=== PATIENT | female | born 1995 | race Caucasian/White ===

== ENCOUNTER → 2017-06-24 | Outpatient (CLI) | payer OTHER ==
[2017-06-26 05:08] LABS: HCV Non Reactive (NR)
== END ==
LOC: LAB EV 17:33
PROVIDERS: General Practice
DX: Z20.9 Contact with and (suspected) exposure to unspecified communicable disease (principal)
CPT/HCPCS: 84460; 86706; 86803; 87340; 87389

== ENCOUNTER → 2017-08-05 | Outpatient (CLI) | payer OTHER | END | disposition home or self-care (01) | LOC: LAB EV 17:25 | DX: Z20.9 Contact with and (suspected) exposure to unspecified communicable disease (principal) | CPT/HCPCS: 86803; 87389 ==

== ENCOUNTER → 2017-10-03 | Outpatient (CLI) | payer OTHER ==
[2017-10-05 04:11] LABS: HBSAG SCREEN Negative (Negative); HEP A AB, IGM Negative (Negative); HEP B CORE AB, IGM Negative (Negative); HEP C VIRUS AB <0.1 (0.0-0.9); HIV SCREEN 4TH GENERATION WRFX Non Reactive (Non Reactive)
[2017-10-05 23:08] LABS: CHLAMYDIA TRACHOMATIS, NAA Negative (Negative); NEISSERIA GONORRHOEAE, NAA Negative (Negative)
== END | disposition home or self-care (01) ==
LOC: LAB SHORT 12:10 → LAB EV 12:10
DX: N90.9 Noninflammatory disorder of vulva and perineum, unspecified (principal)
CPT/HCPCS: 80074; 86592; 86694; 86695; 86696; 87070; 87205; 87252; 87254; 87389; 87491; 87591

== ENCOUNTER → 2017-11-27 | Outpatient (CLI) | payer OTHER, SELFPAY ==
[2017-11-29 09:10] LABS: HIV SCREEN 4TH GENERATION WRFX Non Reactive (Non Reactive)
[2017-11-29 12:07] LABS: HCV ANTIBODY <0.1 (0.0-0.9)
== END | disposition home or self-care (01) ==
LOC: LAB EV 18:52 → LAB SHORT 18:52
PROVIDERS: Family Medicine
DX: Z20.9 Contact with and (suspected) exposure to unspecified communicable disease (principal)
CPT/HCPCS: 84460; 86317; 86803; 87389

== ENCOUNTER → 2018-05-11 | Outpatient (CLI) | payer OTHER, SELFPAY ==
[2018-05-15 02:11] LABS: CHLAMYDIA TRACHOMATIS, NAA Negative (Negative); NEISSERIA GONORRHOEAE, NAA Negative (Negative)
== END | disposition home or self-care (01) ==
LOC: LAB 11:59 → LAB SHORT 11:59
PROVIDERS: Advanced Practice Midwife
DX: Z11.3 Encounter for screening for infections with a predominantly sexual mode of transmission (principal)
CPT/HCPCS: 87491; 87591

== ENCOUNTER → 2019-08-26 | Outpatient (CLI) | payer OTHER | END | disposition home or self-care (01) | LOC: LAB EV 16:05 → LAB SHORT 16:05 | DX: Z20.828 Contact with and (suspected) exposure to other viral communicable diseases (principal) | CPT/HCPCS: U0002 ==